=== PATIENT | female | born 1975 | race Asian ===

== ENCOUNTER 2021-05-22 17:53 | Emergency (ER) | payer OTHER ==
--- NOTE | 2021-05-22 18:00 | NUR ---
PT REFUSED ALL TRIAGE AND TRIAGE QUESTIONS. PT IS MEDICAL CLEARANCE TO GO TO [facility]. PT IS OUTSIDE IN TRIAGE TENT WITH STAFF
--- NOTE | 2021-05-22 18:10 | NUR ---
EXPLAINED TO PT THAT WE NEED TO GET BLOOD AND COVID TESTING, PT REFUSED TO BE TOUCHED AND WILL NOT HAVE ANY BLOOD DRAWN. PT IS LOUD WITH STAFF
--- NOTE | 2021-05-22 18:34 | NUR ---
DR MCDONALD OUTSIDE TO EVALUATE PT.
--- NOTE | 2021-05-22 18:51 | NUR ---
SPOKE WITH [facility] AT [facility] AND EXPLAINED PT REFUSING TO HAVE COVID TEST AND WAS RECENTLY COVID+ ON 05/02. ACCORDING TO ADMINISTRATION AT [facility] THEY ARE NOT GOING TO TAKE THE PATIENT. SPOKE WITH [facility] AT [facility] IN [place] AND EXPLAINED SITUATION, [facility] STATES TO SEND PT BACK TO [place]. TRANSPORTATION WITH PT OUTSIDE.
--- NOTE | 2021-05-22 19:00 | NUR ---
TRANSPORTER LEFT W/ THE PT W/O WAITING FOR ACI FROM DR MCDONALD.
== END 2021-05-22 19:00 | disposition left against medical advice (07) ==
LOC: SED 17:53
DX: R45.6 Violent behavior (principal)
CPT/HCPCS: 99283